=== PATIENT | male | born 1955 | race Caucasian/White ===

== ENCOUNTER 2017-01-12 01:41 | Emergency (ER) | payer OTHER ==
[~2017-01-12] VITALS: Ht 182.9 cm; Wt 88.5 kg
--- NOTE | 2017-01-12 01:54 | NUR ---
PT AMBUALTORY TO ER BED 1 PT STATES "WANTS SHOEMAKER CATH OUT" PLACED BY FLORAL ED FRIDAY FOR URINARY RETENTION. PT AOX4 RR EVEN AND UNLABORED. NO SOB NOTED. NAD NOTED. NO NVD AT THIS TIME. PT GOWNED AND WAITING FOR MD FREEMAN. PT NOTED WITH LEG BAG.
[2017-01-12 02:04] VITALS: BP 144/97
--- NOTE | 2017-01-12 02:29 | NUR ---
DR. JONES AT BEDSIDE FOR EVAL.
--- NOTE | 2017-01-12 02:35 | NUR ---
SHOEMAKER CATH/BAG REMOVED PER MD ORDER.
== END 2017-01-12 02:39 | disposition home or self-care (01) ==
LOC: ER 01:41
DX: Z46.6 Encounter for fitting and adjustment of urinary device (principal)
CPT/HCPCS: A4606; Z7502; Z7610

== ENCOUNTER 2017-01-13 11:05 | Emergency (ER) | payer OTHER ==
[~2017-01-13] VITALS: Ht 182.9 cm; Wt 88.5 kg
--- NOTE | 2017-01-13 11:10 | NUR ---
PT BIB SELF C/O SEVERE PAIN IN "THE END OF MY PENIS" AND NO URINATION SINCE YESTERDAY/ ALSO C/O CONSTIPATION, WHICH PT THINKS IS RELATED. S/P URINARY CATH REMOVAL ON FRIDAY MORNING. PT UNABLE TO SIT OR STAND STILL DURING TRIAGE, MOVING AROUND AND FIDGETING D/T PAIN. BLADDER DISTENDED, TENDER TO PALP. NO OTHER COMPLAINTS. RESP EVEN UNLABORED. SKIN WARM NONDIAPHORETIC. AMBULATORY WITH STEADY GAIT. TO ER BED 09.
--- NOTE | 2017-01-13 11:29 | NUR ---
16FR SHOEMAKER CATH INSERTED PER MD ORDER. IMMEDIATE DRAINAGE OF 400ML BRIGHT RED URINE NOTED. NO ODOR. TOLERATED PROCEDURE WELL. REPORTED IMMEDIATE RELIEF OF PAIN.
[2017-01-13 11:41] LABS: BASOPHILS # (AUTO) 0.2 /CMM (0.0-0.2); BASOPHILS % (AUTO) 1.1 % (0.0-2.0); HEMATOCRIT 44 % (39-51); HEMOGLOBIN 14.7 g/dL (13.5-17.5); LYMPHOCYTES # (AUTO) 0.9 /CMM (0.8-4.8); LYMPHOCYTES % (AUTO) 5.2 % (20.0-44.0); MEAN CORPUSCULAR HEMOGLOBIN 30 PG (26.0-33.0); MEAN CORPUSCULAR HGB CONC 34 g/dl (31.0-36.0); MEAN CORPUSCULAR VOLUME 89 fL (80-96); MONOCYTES % (AUTO) 5.7 % (2.0-12.0); NEUTROPHILS # (AUTO) 15.9 /CMM (1.8-8.9); PLATELET COUNT (AUTO) 247 /CMM (150-450); RDW COEFFICIENT OF VARIATION 13.1 (11.5-15.0); RED BLOOD CELL COUNT(AUTO) 4.91 MIL/uL (4.5-6.0)
[2017-01-13 11:44] LABS: APPEARANCE,URINE CLOUDY (CLEAR); BILIRUBIN,URINE 1+ (NEGATIVE); BLOOD, URINE 3+ Ery/uL (NEGATIVE); COLOR,URINE RED (YELLOW); KETONES,URINE NEGATIVE (NEGATIVE); LEUKOCYTE ESTERASE ,URINE 3+ (NEGATIVE); NITRITE, URINE POSITIVE (NEGATIVE); PH,URINE 7.5 (5.0-8.0); PROTEIN,URINE 2+ mg/dl (NEGATIVE); UGLUCOSE NEGATIVE (NEGATIVE)
[2017-01-13 11:49] LABS: ADD URINE CULTURE YES; BACTERIA,URINE 3+ /HPF (None Seen); RBC,URINE TOO NUMEROUS TO COUN /HPF (0-2); SQUAMOUS EPITHELIAL CELL,UR None Seen /HPF (None Seen)
[2017-01-13 11:52] LABS: CALCIUM, SERUM 9.1 mg/dL (8.5-10.1); CREATININE 1.3 mg/dL (0.6-1.3); POTASSIUM 3.8 mmol/L (3.5-5.1)
[2017-01-13] MEDS ORDERED: CIPROFLOXACIN HCL 500 MG TABLET ONE (11:58)
[2017-01-13] MEDS ORDERED: CIPROFLOXACIN HCL 500 MG TABLET PO ONE (12:00)
--- NOTE | 2017-01-13 12:13 | NUR ---
Patient discharged to home in stable condition. Written and verbal after care instructions given. Patient verbalizes understanding of instruction. CATHETER SWITCHED TO LEG BAG, INSTRUCTED ON HOW TO DRAIN LEG BAG. AMBULTORY WITH STEADY GAIT. VSS.
[2017-01-13 12:15] VITALS: BP 141/102
--- NOTE | 2017-01-13 12:22 | NUR ---
PT REQUESTED A FULL SIZE "NIGHT BAG" FOR CATH; PROVIDED WITH DRAINAGE BAG FROM CATHETER KIT.
== END 2017-01-13 12:16 | disposition home or self-care (01) ==
LOC: ER 11:06
DX: N30.90 Cystitis, unspecified without hematuria (principal); R33.9 Retention of urine, unspecified; I10 Essential (primary) hypertension; N40.0 Benign prostatic hyperplasia without lower urinary tract symptoms; Z98.890 Other specified postprocedural states
CPT/HCPCS: 36415; 51702; 80048; 81001; 85025; 87086; 99284; A4606; 81000-TC; Z7610